=== PATIENT | male | born 1985 | race Caucasian/White ===

== ENCOUNTER 2022-07-18 07:53 | Outpatient (RCR) | payer MEDICAID, SELFPAY ==
--- NOTE | 2022-07-18 08:56 | PTOPEVAL1 ---
Assessment and note entered by Kamla Mcadams, PT Evaluation Information Assessment Status Evaluation Diagnosis s/p lumbar surgery Onset 06/07/22 Subjective Information Frank Ewing reports he had a lumbar laminectomy for two levels on 06/07/22. He reports he had herniated discs and deterioration prior to surgery . He had tried PT and injections prior to surgery. Since surgery, he is still having lower back pain and pain across the back of both hips. He also notes his legs will give out but not as frequently as it did prior to surgery. He is having difficulty sleeping in bed because of pain with laying flat on his back and pain with side sleeping. He has been sleeping in a recliner most of the time. He is limited to walking about one eighth of a mile before his right hip gets pain and then he has a warmth to his right leg. He does report he is able to stand up straight since having surgery. He used a cane for a month after surgery but has been able to progress away from the cane recently. He is using hydrocodone for pain relief. Reported Pain Level Pain Score 7: Self Report Assessment PT Clinical Summary Frank Ewing presents 6 weeks s/p 2 level lumbar laminectomy. He has difficulty with sleeping, walking more than an eighth of a mile, and weakness in his legs. He objectively demonstrates tenderness on bilateral lateral gluteals, decreased and painful lumbar ROM, decreased core strength, impaired gait, decreased endurance, and decreased functional abilities. He will benefit from skilled PT to address these limitations. Plan of Care Interventions Electrical Stimulation,Hot Pack/Cold Pack,Manual Therapy,Neuro Re-education,Patient/Caregiver Educati,Therapeutic Activities,Therapeutic Exercise PT Services Indicated Yes Treatment Frequency and 3 times a week for 12 visits. Duration These treatments will address the objective and functional deficits as defined above. The patient will be advanced safely and appropriately in order for the patient to progress towards his/her prior level of function. Additional exercises will be introduced and as well as a comprehensive home exercise program upon discharge, if needed, ?to ensure carryover of functional gains achieved in the clinic. This treatment plan has been reviewed and agreement upon by the patient.
--- NOTE | 2022-10-19 14:49 | PTOPDC ---
Assessment and note entered by Kamla Mcadams, PT Evaluation Information Assessment Status Discharge - Pt Not Presen Diagnosis s/p lumbar surgery Onset 06/07/22 Subjective Information Pt not present for discharge summary. Assessment PT Clinical Summary Frank Ewing attended 4 skilled PT visits for chronic low back pain. He was reporting no change in pain on his last visit dated 08/15/22. Pt has not returned to formal PT since his last visit and will be discharged. Plan of Care Treatment Frequency and Discharge Duration
== END 2022-08-15 23:59 | disposition home or self-care (01) ==
LOC: CHSPT 07:53
DX: Z47.89 Encounter for other orthopedic aftercare (principal); Z98.890 Other specified postprocedural states
CPT/HCPCS: 97014; 97110; 97161; 97530; G0283

== ENCOUNTER 2023-05-03 21:54 | Emergency (ER) | payer OTHER, SELFPAY ==
--- NOTE | 2023-05-03 22:07 | ED.MALEGU ---
HPI - Male Genitourinary General Chief complaint: Urogenital-Male Stated complaint: Penis Swelling Time Seen by Provider: 05/03/23 22:06 Source: patient Mode of arrival: ambulatory Limitations: no limitations History of Present Illness HPI Narrative: this is a 38-year-old male who presents with some redness warmth and tenderness to the glans penis and patient has no known injury no scleral irritation there is no discharge from the penis no fever chills. The patient noticed some erythema warmth and tenderness and and then subsequently developed some swelling around the huitron of the glans penis. Is currently no fever chills no nausea vomiting no abdominal pain. Onset (ago): day(s) Duration: constant Location: penis Severity: mild Related Data Allergies Allergy/AdvReac Type Severity Reaction Status Date / Time No Known Allergies Allergy Verified 05/03/23 22:07 Review of Systems Review of Systems: All systems reviewed & are unremarkable except as noted in HPI and below PMFSH Past Medical History Medical History Patient denies medical problems Exam Const: General: healthy appearing Nutritional Appearance: well nourished Limitations: no limitations Resp: Effort & Inspection: normal respiratory effort Auscultation: clear to auscultation bilaterally Cardio: Rate: regular rate Rhythm: regular rhythm GI: GI Palp: Yes Soft to palpation : Penis: Yes circumcised Scrotum: scrotum normal Other: patient has erythema warmth and tenderness in the glans penis and around the cesar along with swelling in the huitron. Urinary Catheter: Urinary Catheter: patent and draining Back/Spine/Pelvis: Back: no CVA tenderness Skin: General skin exam: normal color Rashes: no rashes Course Course Emergency Course: Patient received a g of IM ceftriaxone. Critical Care Time Critical Care Time Critical Care Time: No Discharge Plan Discharge Clinical Impression: Cellulitis Patient Disposition: Home, Self-Care Condition: Stable Instructions: Antibiotic Form, Cellulitis (ED) Additional Instructions: advised take medicine as prescribed and follow up primary within 1 week for further evaluation treatment. Prescriptions: New amoxicillin-pot clavulanate [Augmentin] 500-125 mg tablet 1 tablet PO TID Qty: 30 0RF Follow-up/Referrals: UNKNOWN,DOCTOR [Primary Care Provider] - Time of Disposition: 22:12
[2023-05-03 22:15] VITALS: BP 145/85; PULSE 103; RESP 18; TEMP 36.7; O2SAT 99
[2023-05-03] MEDS: cefTRIAXone 1 GM, LIDOCAINE HCL 1% LOCAL INJ 2.1 ML IM (22:17)
[2023-05-03 22:20] VITALS: BP 138/74
== END 2023-05-03 22:24 | disposition home or self-care (01) ==
PROVIDERS: Emergency Provider Emergency Medicine
DX: N48.22 Cellulitis of corpus cavernosum and penis (principal)
CPT/HCPCS: 96372; 99283; J0696

== ENCOUNTER 2023-05-14 13:14 | Outpatient (RCR) | payer OTHER, SELFPAY ==
--- NOTE | 2023-05-14 13:52 | PTOPEVAL1 ---
Assessment and note entered by Colby Talbot Evaluation Information Assessment Status Evaluation Diagnosis cervicalgia Onset 03/13/23 Subjective Information Pt. reports that he developed numbness in both hands through the night around 03/13/23. He states that symptoms are only at night while he tries to sleep. He notices the symptoms every night. He reports that the numbness is in both hands and affects all fingers. He reports that he has no neck pain. He reports that he has pain located in both elbows. he reports that he underwent low back surgery about 1 year ago. He states that he wakes 20 times a night due to the numbness. He states that he doesnt notice much symptoms through the day. He states that he is not very active and spends most of the day no his phone or watching movies. He reports that his goal for therapy is to be able to sleep better. Reported Pain Level Pain Score 5: Self Report Assessment PT Clinical Summary Pt. is a 38 year old male who enters the clinic with cervicalgia, with only current symptoms being numbness and burning in the lower arms and hands. He presents with impaired postural awareness. Special testing varies and has consistent with both cerivcal impingement, as well as ulnar nerve involvement. Discussed modifications in sleeping to help reduce symptoms. Continued skilled PT is indicated in order to improve postural awareness and reduce symptoms to allow for pt. goal of improved sleep. Plan of Care Interventions Manual Therapy,Mechanical Traction,Neuro Re- education,Therapeutic Activities,Therapeutic Exercise Treatment Frequency and 2x/week x 12 visits Duration These treatments will address the objective and functional deficits as defined above. The patient will be advanced safely and appropriately in order for the patient to progress towards his/her prior level of function. Additional exercises will be introduced and as well as a comprehensive home exercise program upon discharge, if needed, ?to ensure carryover of functional gains achieved in the clinic. This treatment plan has been reviewed and agreement upon by the patient.
== END 2023-06-22 23:59 | disposition home or self-care (01) ==
LOC: CHSPT 13:14
PROVIDERS: Visit Provider Nurse Practitioner Family
DX: M54.2 Cervicalgia (principal); R20.0 Anesthesia of skin
CPT/HCPCS: 97012; 97110; 97112; 97161

== ENCOUNTER 2023-11-14 12:55 | Outpatient (RCR) | payer OTHER, SELFPAY ==
--- NOTE | 2023-11-14 13:59 | OPREHPOC ---
Outpatient Therapy Plan of Care This is a Multidisciplinary Plan of Care that may contain components documented by all disciplines (PT, OT, and ST.) PT Problem 1 PT Problem #1 Knowledge Deficit PT Goal 1 Goal The patient will demonstrate independence in a home exercise program. Target Visit 12 PT Problem 2 PT Problem #2 Pain PT Goal 1 Goal The patient will report no greater than 4/10 low back pain with daily activities. Target Visit 12 PT Problem 3 PT Problem #3 Impaired Functional Mobil PT Goal 1 Goal The patient will demonstrate 86% or less self perceived disability per the Oswestry Back Index. The patient will demonstrate the ability to lift 20 lbs from waist to shoulder with minimal low back pain to improve ability to lift household items. PT Problem 4 PT Problem #4 Impaired Endurance PT Goal 1 Goal The patient will be able to ambulate 1,200 feet during the 6 minute walk test to improve community ambulation. PT Problem 5 PT Problem #5 Impaired Range of Motion PT Goal 1 Goal The patient will improve lumbar flexion AROM to 40 degrees in order to don socks/shoes with increased ease. Target Visit 12
--- NOTE | 2023-11-14 14:00 | PTOPEVAL1 ---
Assessment and note entered by Kamla Mcadams, PT Evaluation Information Assessment Status Evaluation Diagnosis Low Back Pain Onset 11/06/23 Subjective Information Frank Ewing reports he has been having lower back pain in the middle since 2014 for unknown reasons. He eventually had a laminectomy from L3-5 in 2022 . Since surgery, he does not have as much pain in his right leg. He continues to have constant middle lower back pain. He has worse pain with picking up items and bending over to tie his shoes . He was referred to a specialist and was prescribed physical therapy. He takes gabapentin and muscle relaxers for pain relief. He reports he has not been able to work because of his back and he was on disability for 3 years but was recently taken off. 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 He occasionally can get pain relief with laying down on his side. Reported Pain Level Pain Score 8: Self Report Assessment PT Clinical Summary Frank Ewing presents with chronic low back pain and he had a L3-5 laminectomy in 2022. He continues to have pain and difficulty with prolonged standing, bending over at the waist, and lifting items. He objectively demonstrates decreased and painful lumbar AROM, decreased core and hip strength, positive special tests consistent with right LE nerve radiculopathy, decreased flexibility, and poor posture. He will benefit from skilled PT to address these limitations. Plan of Care Interventions Electrical Stimulation,Hot Pack/Cold Pack,Manual Therapy,Neuro Re-education,Patient/Caregiver Educati,Therapeutic Activities,Therapeutic Exercise PT Services Indicated Yes Treatment Frequency and 2 times a week for 12 visits Duration These treatments will address the objective and functional deficits as defined above. The patient will be advanced safely and appropriately in order for the patient to progress towards his/her prior level of function. Additional exercises will be introduced and as well as a comprehensive home exercise program upon discharge, if needed, ?to ensure carryover of functional gains achieved in the clinic. This treatment plan has been reviewed and agreement upon by the patient.
--- NOTE | 2023-12-28 17:06 | OPREHPOC ---
Outpatient Therapy Plan of Care This is a Multidisciplinary Plan of Care that may contain components documented by all disciplines (PT, OT, and ST.) PT Problem 1 PT Problem #1 Knowledge Deficit PT Goal 1 Goal The patient will demonstrate independence in a home exercise program. Target Visit 12 Progress Met PT Problem 2 PT Problem #2 Pain PT Goal 1 Goal The patient will report no greater than 4/10 low back pain with daily activities. Target Visit 12 Progress Not Met PT Problem 3 PT Problem #3 Impaired Functional Mobil PT Goal 1 Goal The patient will demonstrate 86% or less self perceived disability per the Oswestry Back Index. The patient will demonstrate the ability to lift 20 lbs from waist to shoulder with minimal low back pain to improve ability to lift household items. Progress Not Met PT Problem 4 PT Problem #4 Impaired Endurance PT Goal 1 Goal The patient will be able to ambulate 1,200 feet during the 6 minute walk test to improve community ambulation. Progress Not Met PT Problem 5 PT Problem #5 Impaired Range of Motion PT Goal 1 Goal The patient will improve lumbar flexion AROM to 40 degrees in order to don socks/shoes with increased ease. Target Visit 12 Progress Not Met
--- NOTE | 2023-12-28 17:06 | PTOPDC ---
Assessment and note entered by Naomie Petty DPT Evaluation Information Assessment Status Discharge Diagnosis Low Back Pain Onset 11/06/23 Subjective Information Mr. Ewing reports no improvement since start of PT. He reports any bending activity especially donning his shoes are painful. He reports compliance with HEP. He follows up with MD on 12/31. Reported Pain Level Pain Score 7: Self Report Assessment PT Clinical Summary Mr. Ewing attended 10 visits of skilled PT with limited progress towards goals. He continues to have pain with all activities that require flexion including donning shoes. He continues to difficulty with standing and walking for prolonged periods. Patient is independent with HEP and will follow up with MD. He is agreeable to DC at this time. Plan of Care PT Services Indicated No
--- NOTE | 2023-12-31 07:00 | PTOPDC ---
Assessment and note entered by Naomie Petty DPT Evaluation Information Assessment Status Discharge Diagnosis Low Back Pain Onset 11/06/23 Subjective Information Mr. Ewing reports no improvement since start of PT. He reports any bending activity especially donning his shoes are painful. He reports compliance with HEP. He follows up with MD on 12/31. Assessment PT Clinical Summary Mr. Ewing attended 10 visits of skilled PT with limited progress towards goals. He continues to have pain with all activities that require flexion including donning shoes. He continues to difficulty with standing and walking for prolonged periods. Patient is independent with HEP and will follow up with MD. He is agreeable to DC at this time. Plan of Care PT Services Indicated No
== END 2023-12-28 20:00 | disposition home or self-care (01) ==
LOC: CHSPT 12:55
DX: M54.50 Low back pain, unspecified (principal); M48.061 Spinal stenosis, lumbar region without neurogenic claudication; M54.16 Radiculopathy, lumbar region
CPT/HCPCS: 97014; 97110; 97140; 97150; 97161; G0283

== ENCOUNTER 2025-03-26 14:28 | Outpatient (RCR) | payer OTHER, SELFPAY ==
--- NOTE | 2025-03-26 15:33 | OPREHPOC ---
Outpatient Therapy Plan of Care This is a Multidisciplinary Plan of Care that may contain components documented by all disciplines (PT, OT, and ST.) PT Problem 1 PT Problem #1 Knowledge Deficit PT Goal 1 Goal / Goal Update Independent and compliant with HEP. Target Visit 2 PT Problem 2 PT Problem #2 Pain PT Goal 1 Goal / Goal Update Pt to report no more than 5/10 pain at rest. Target Visit 12 PT Problem 3 PT Problem #3 Impaired Range of Motion PT Goal 1 Goal / Goal Update Pt to improve active lumbar flexion ROM to ankles. Pt to improve active lumbar side bending to 35 deg bilat. Target Visit 10 PT Problem 4 PT Problem #4 Impaired Strength PT Goal 1 Goal / Goal Update Pt to improve gross hip strength to 5/5. Pt to improve lower abdominal mm strength to 4/5 for improved lumbar stability. Target Visit 10 PT Problem 5 PT Problem #5 Impaired Functional Mobility PT Goal 1 Goal / Goal Update Pt to report 20% improvement in perceived disability on oswestry. Pt to report waking up less than 5 times at night due to pain. Target Visit 10
--- NOTE | 2025-03-26 15:33 | PTOPEVAL1 ---
Assessment and note entered by Mary Beth Peacock, PT Evaluation Information Assessment Status Evaluation ICD-10 Condition Codes (PT) Pain in low back M54.50,Radiculopathy, lumbar region M54.16 Other ICD-10 Condition Codes ( M96.1 PT) Onset 03/24/25 Subjective Information Pt reports his back pain started in 2014 and has been getting progressively worse. He also notes tingling and burning down both legs and into the calves. He currently rates his pain 8/10 at rest and states his pain is worsened by standing and walking. He also reports he can't lift anything because then his back goes out and he can't do anything for a couple days after that. He reports that coughing or sneezing worsens his pain and symptoms and cause his knees to give out, and this has caused him to fall a few times this year. He denies difficulty with bowel/bladder. Pt states the doctor ordered x-rays and that but he should get therapy before getting an MRI. Reported Pain Level Pain Score 8: Self Report Assessment PT Clinical Summary Mr. Ewing is a 39yo male presenting for skilled PT visit for low back pain with radicular symptoms down the legs. He demonstrates mild impairments in his proximal strength and significant abdominal mm weakness. Coughing/sneezing makes his symptoms worse and have led to falls due to leg weakness. His symptoms are worsened with bending forward and backward as well as with lifting. He's also unable to lie flat on his back and experiences significant sleep disruption due to pain. Symptoms appear to be discogenic in nature. Pt will benefit from skilled PT intervention for pain relief and strengthening to reduce symptom severity and improve quality of life. Plan of Care Interventions Electrical Stimulation,Gait Training,Hot Pack/Cold Pack,Manual Therapy,Neuro Re-education,Patient/ Caregiver Education,Therapeutic Activities, Therapeutic Exercise,Self-Care/Home Management PT Services Indicated Yes Treatment Frequency and 2x/week for 10 visits Duration These treatments will address the objective and functional deficits as defined above. The patient will be advanced safely and appropriately in order for the patient to progress towards his/her prior level of function. Additional exercises will be introduced and as well as a comprehensive home exercise program upon discharge, if needed, ?to ensure carryover of functional gains achieved in the clinic. This treatment plan has been reviewed and agreement upon by the patient.
--- NOTE | 2025-04-28 15:10 | OPREHPOC ---
Outpatient Therapy Plan of Care This is a Multidisciplinary Plan of Care that may contain components documented by all disciplines (PT, OT, and ST.) PT Problem 1 PT Problem #1 Knowledge Deficit PT Goal 1 Goal / Goal Update Independent and compliant with HEP. Target Visit 2 Progress Met PT Problem 2 PT Problem #2 Pain PT Goal 1 Goal / Goal Update Pt to report no more than 5/10 pain at rest. Target Visit 12 Progress Not Met PT Problem 3 PT Problem #3 Impaired Range of Motion PT Goal 1 Goal / Goal Update Pt to improve active lumbar flexion ROM to ankles. Pt to improve active lumbar side bending to 35 deg bilat. Target Visit 10 Progress Not Met PT Problem 4 PT Problem #4 Impaired Strength PT Goal 1 Goal / Goal Update Pt to improve gross hip strength to 5/5. Pt to improve lower abdominal mm strength to 4/5 for improved lumbar stability. Target Visit 10 Progress Not Met PT Problem 5 PT Problem #5 Impaired Functional Mobility PT Goal 1 Goal / Goal Update Pt to report 20% improvement in perceived disability on oswestry. Pt to report waking up less than 5 times at night due to pain. Target Visit 10 Progress Not Met
--- NOTE | 2025-04-28 15:10 | PTOPDC ---
Assessment and note entered by JT File, PT Evaluation Information Assessment Status Evaluation ICD-10 Condition Codes (PT) Pain in low back M54.50,Radiculopathy, lumbar region M54.16 Other ICD-10 Condition Codes ( M96.1 PT) Onset 03/24/25 Subjective Information patient reports his pain continues to be intense. he reports he has not improved any amount since starting PT. he is hoping to get the MRI of his back CK. Reported Pain Level Pain Score 8: Self Report Assessment PT Clinical Summary mr. summers presents to skilled PT services today with continued significant pain and symptoms in the lower back and bilateral LE's. he has only met HEP goal as of this date. patient would benefit from DC from skilled PT today, and return to PCP for further testing. he may be ready for MRI evaluation of the lumbar spine. Plan of Care PT Services Indicated Yes
== END 2025-04-28 15:54 | disposition home or self-care (01) ==
LOC: CHSPT 14:28
PROVIDERS: Visit Provider Nurse Practitioner Adult Health
DX: M96.1 Postlaminectomy syndrome, not elsewhere classified (principal); M54.16 Radiculopathy, lumbar region; M54.50 Low back pain, unspecified
CPT/HCPCS: 97014; 97110; 97112; 97140; 97161; G0283